=== PATIENT | female | born 1995 | race Hispanic/Latino ===

== ENCOUNTER → 2023-08-11 | Emergency (ER) | payer OTHER ==
[~2023-08-11] MED LIST: CYCLOBENZAPRINE 10 MG TAB ONE; KETOROLAC 30 MG/ML INJ ONE
[2023-08-11 12:43] LABS: Specific Gravity 1.027 (1.005-1.030); Urine Bacteria None Seen /HPF (<20); Urine Bilirubin NEGATIVE (Negative); Urine Blood Negative (Negative); Urine Clarity Extremely Turbid (Clear); Urine Color Yellow (Yellow); Urine Glucose NEGATIVE (Negative); Urine Mucus 1+ /HPF (None Seen); Urine Protein TRACE (Negative); Urine RBC <5 /HPF (None Seen); Urine Urobilinogen Normal (Normal); Urine pH 5.5 (5.0-7.0)
--- NOTE | 2023-08-11 13:38 | RAD REPORT ---
EXAM DESCRIPTION: RAD - Lumbar Spine 3 Views - 08/11/2023 1:21 pm CLINICAL HISTORY: Back pain FINDINGS: No fracture or dislocation is seen. Mild posterior subluxation L5 on S1 with mild disc space narrowing
--- NOTE | 2023-08-11 13:45 | ER ---
Nurse's Notes [facility] Name: Vera Stacy Age: 27 yrs Sex: Female : 1995 Arrival Date: 08/11/2023 Time: 11:39 Bed 11 Private MD: Diagnosis: Spondylolisthesis;Sprain of ligaments of lumbar spine Presentation: 08/10 11:51 Chief complaint: Parent and/or Guardian states: low back pain that wraps around to as6 lower abdomen x2 days. Coronavirus screen: At this time, the client does not indicate any symptoms associated with coronavirus-19. Ebola Screen: No symptoms or risks identified at this time. Initial Sepsis Screen: Does the patient meet any 2 criteria? No. Patient's initial sepsis screen is negative. Does the patient have a suspected source of infection? No. Patient's initial sepsis screen is negative. Risk Assessment: Do you want to hurt yourself or someone else? Patient reports no desire to harm self or others. Onset of symptoms was August 09, 2023. 11:51 Method Of Arrival: Ambulatory as6 11:51 Acuity: ROSE MARIE 3 as6 Triage Assessment: 11:57 General: Appears in no apparent distress. uncomfortable, Behavior is calm, cooperative. as6 Pain: Complains of pain in low back area Pain radiates to right lower quadrant and left lower quadrant. EENT: No deficits noted. No signs and/or symptoms were reported regarding the EENT system. Neuro: Level of Consciousness is awake, alert, obeys commands, Oriented to person, place, time, situation. Cardiovascular: Capillary refill < 3 seconds Patient's skin is warm and dry. Respiratory: Respiratory effort is even, unlabored, Respiratory pattern is regular, symmetrical. GI: No deficits noted. No signs and/or symptoms were reported involving the gastrointestinal system. : Denies burning with urination, inability to void, urinary frequency. Derm: Skin is intact, is healthy with good turgor. Musculoskeletal: Range of motion: limited in back. 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 - Social history:: Smoking status: Patient denies any tobacco usage or history of. Screenin:15 [facility] ED Fall Risk Assessment (Adult) History of falling in the last 3 months, as6 including since admission No falls in past 3 months (0 pts) Confusion or Disorientation No (0 pts) Intoxicated or Sedated No (0 pts) Impaired Gait No (0 pts) Mobility Assist Device Used No (0 pt) Altered Elimination No (0 pt) Score/Fall Risk Level 0 - 2 = Low Risk Oriented to surroundings, Maintained a safe environment, Educated pt \T\ family on fall prevention, incl call for assistance when getting out of bed, Assessed \T\ reinforced patient's understanding of fall precautions, Hourly rounding (assess needs \T\ fall precautionary measures) done. Abuse screen: Denies threats or abuse. Denies injuries from another. Nutritional screening: No deficits noted. Tuberculosis screening: No symptoms or risk factors identified. Assessment: 12:15 General: see triage assessment . as6 13:06 Reassessment: Patient appears in no apparent distress at this time. Patient and/or as6 family updated on plan of care and expected duration. Pain level reassessed. Patient is alert, oriented x 3, equal unlabored respirations, skin warm/dry/pink. Vital Signs: 11:51 BP 130 / 84; Pulse 96; Resp 20 S; Temp 98.1(TE); Pulse Ox 100% on R/A; Weight 99.79 kg as6 (R); Height 5 ft. 7 in. (R); Pain 7/10; 14:09 BP 112 / 76; Pulse 84; Resp 16 S; Pulse Ox 99% on R/A; as6 11:51 Body Mass Index 34.46 (99.79 kg, 170.18 cm) as6 11:51 Pain Scale: Adult as6 ED Course: 11:42 Patient arrived in ED. ra3 11:48 [facility] jh[facility] 11:48 Kang Ruff MD is Attending Physician. jh7 11:53 Triage completed. as6 11:54 Arm band placed on right wrist. as6 11:55 Anish Aburto, LYDIA is Primary Nurse. as6 12:15 Bed in low position. Call light in reach. as6 12:20 Urine collected: clean catch specimen, clear. as6 12:44 Warm blanket given. as6 13:22 XRAY Lumbar Spine (3 Views) In Process Unspecified. EDMS 14:10 Provided Education on: follow up, rest and ice back . as6 14:10 No provider procedures requiring assistance completed. Patient did not have IV access as6 during this emergency room visit. Administered Medications: 12:21 Drug: Ketorolac IM 30 mg IM once Route: IM; Site: right deltoid; as6 14:10 Follow up: Response: No adverse reaction as6 12:21 Drug: Cyclobenzaprine PO 10 mg PO once Route: PO; as6 14:10 Follow up: Response: No adverse reaction as6 Medication: 12:15 VIS not applicable for this client. as6 Outcome: 13:45 Discharge ordered by . jhCarissa 14:10 Discharged to home ambulatory, as6 14:10 Condition: stable 14:10 Discharge instructions given to patient, Instructed on discharge instructions, follow up and referral plans. medication usage, Demonstrated understanding of instructions, follow-up care, medications, Prescriptions given X 2, 14:11 Patient left the ED. as6 Signatures: Dispatcher [employer] Anish Sawyer, RN RN as6 Mallory Oscar, SWIMMING INSTRUCTOR SWIMMING INSTRUCTOR 7 Yuliana Garland ra3
--- NOTE | 2023-08-11 13:46 | EDPHYS ---
Physician Documentation [facility] Name: Vera Stacy Age: 27 yrs Sex: Female : 1995 Arrival Date: 08/11/2023 Time: 11:39 Bed 11 Private MD: ED Physician Kang Ruff HPI: 08/10 11:53 This 27 yrs old Female presents to ER via Ambulatory with complaints of Back jh7 Pain. 11:53 The patient presents with pain that is acute. The symptoms are located in the lumbar jh7 area and sacrum. Onset: The symptoms/episode began/occurred 2 day(s) ago. Radiates down both legs into the front of her abdomen worsening with flexion of the spine. Associated signs and symptoms: Pertinent negatives: abdominal pain, chest pain, constipation, dysuria, fever, headache, hematuria, numbness, tingling, urinary retention, vomiting, weakness. The problem was sustained when lifting heavy object. Modifying factors: the patient symptoms are aggravated by bending, lifting, movement. 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 - Social history:: Smoking status: Patient denies any tobacco usage or history of. ROS: 11:53 Constitutional: Negative for fever, chills, and weight loss, Eyes: Negative for injury, jh7 pain, redness, and discharge, Neck: Negative for injury, pain, and swelling, Cardiovascular: Negative for chest pain, palpitations, and edema, Respiratory: Negative for shortness of breath, cough, wheezing, and pleuritic chest pain, Abdomen/GI: Negative for abdominal pain, nausea, vomiting, diarrhea, and constipation, MS/Extremity: Negative for injury and deformity, Skin: Negative for injury, rash, and discoloration, Neuro: Negative for headache, weakness, numbness, tingling, and seizure, 11:53 Back: Positive for decreased range of motion, pain with movement, radiated pain, 11:53 All other systems are negative, Exam: 11:53 Constitutional: This is a well developed, well nourished patient who is awake, alert, jh7 and in no acute distress. Head/Face: Normocephalic, atraumatic. Neck: Trachea midline, no thyromegaly or masses palpated, and no cervical lymphadenopathy. Supple, full range of motion without nuchal rigidity, or vertebral point tenderness. No Meningismus. Cardiovascular: Regular rate and rhythm with a normal S1 and S2. No gallops, murmurs, or rubs. Normal PMI, no JVD. No pulse deficits. Respiratory: Lungs have equal breath sounds bilaterally, clear to auscultation and percussion. No rales, rhonchi or wheezes noted. No increased work of breathing, no retractions or nasal flaring. Abdomen/GI: Soft, non-tender, with normal bowel sounds. No distension or tympany. No guarding or rebound. No evidence of tenderness throughout. Skin: Warm, dry with normal turgor. Normal color with no rashes, no lesions, and no evidence of cellulitis. MS/ Extremity: Pulses equal, no cyanosis. Neurovascular intact. Full, normal range of motion. Neuro: Awake and alert, GCS 15, oriented to person, place, time, and situation. Motor strength 5/5 in all extremities. Sensory grossly intact. Normal gait. 11:53 Back: pain, that is moderate, of the lumbar area, L4-L5, ROM is painful, with all movement, normal spinal alignment noted, CVA tenderness, is absent, muscle spasm, is appreciated in the Bilateral legs and lower abdomen, Vital Signs: 11:51 BP 130 / 84; Pulse 96; Resp 20 S; Temp 98.1(TE); Pulse Ox 100% on R/A; Weight 99.79 kg as6 (R); Height 5 ft. 7 in. (R); Pain 7/10; 14:09 BP 112 / 76; Pulse 84; Resp 16 S; Pulse Ox 99% on R/A; as6 11:51 Body Mass Index 34.46 (99.79 kg, 170.18 cm) as6 11:51 Pain Scale: Adult as6 MDM: 11:49 Patient medically screened. [facility] 13:45 Differential diagnosis: arthritis, ruptured disc, spinal injury, sprain. Data reviewed: [facility] vital signs, nurses notes, radiologic studies, plain films. I considered the following discharge prescriptions or medication management in the emergency department Medications were administered in the Emergency Department. See MAR. Historians other than the Patient: Parent: Mom. Counseling: I had a detailed discussion with the patient and/or guardian regarding the historical points, exam findings, and any diagnostic results supporting the discharge/admit diagnosis, to return to the emergency department if symptoms worsen or persist or if there are any questions or concerns that arise at home. 08/10 12:13 Order name: Urinalysis w/ reflexes; Complete Time: 12:46 jh7 08/10 12:13 Order name: XRAY Lumbar Spine (3 Views); Complete Time: 13:42 jh7 Administered Medications: 12:21 Drug: Ketorolac IM 30 mg IM once Route: IM; Site: right deltoid; as6 14:10 Follow up: Response: No adverse reaction as6 12:21 Drug: Cyclobenzaprine PO 10 mg PO once Route: PO; as6 14:10 Follow up: Response: No adverse reaction as6 Disposition Summary: 08/11/23 13:45 Discharge Ordered Notes: [facility] Problem: new [facility] Symptoms: have improved [facility] Condition: Stable [facility] Diagnosis - Spondylolisthesis 7 - Sprain of ligaments of lumbar spine 7 Followup: 7 - With: Private Physician - When: 2 - 3 days - Reason: Recheck today's complaints Discharge Instructions: - Discharge Summary Sheet [facility] - Spondylolisthesis 7 - Lumbar Strain [facility] Forms: - Medication Reconciliation Form [facility] - Thank You Letter [facility] - Patient Portal Instructions [facility] - Leadership Thank You Letter [facility] Prescriptions: - Naprosyn 500 mg Oral Tablet - take 1 tablet ORAL route 2 times per day take with food; 30 tablet; Refills: 0, 7 Product Selection Permitted - Zanaflex 4 mg Oral Tablet - take 1 tablet ORAL route every 8 hours As needed; 20 tablet; Refills: 0, jh7 Product Selection Permitted Signatures: Dispatcher [employer] Anish Sawyer RN RN as6 Mallory Oscar FNP FNP [facility]
[2023-08-11 14:25] VITALS: TEMP 98.1
[2023-08-11 14:51] VITALS: BP 112/76; O2SAT 99
== END ==
LOC: ER 11:39
DX: S33.5XXA Sprain of ligaments of lumbar spine, initial encounter (principal); M43.10 Spondylolisthesis, site unspecified
CPT/HCPCS: 72100; 81001; 96372; 99284